=== PATIENT | male | born 1975 | race Caucasian/White ===

== ENCOUNTER → 2021-11-02 | Outpatient (CLI) | payer BC ==
[2021-11-01 09:35] LABS: HEMOGLOBIN 15.1 g/dL (14.0-18.0)
[2021-11-01 09:53] LABS: INR 0.89; PROTHROMBIN TIME 12.8 seconds (11.9-14.5)
[2021-11-01 09:54] LABS: PARTIAL THROMBOPLASTIN TIME 26.8 seconds (23.8-35.5)
[~2021-11-02] MED LIST: FENTANYL CITRATE/PF 100MCG/2 ML INJ ONE; LIDOCAINE HCL 1% LOCAL INJ 20 ML VIAL ONE; MIDAZOLAM HCL 2 MG/2 ML VIAL ONE
== END ==
LOC: CT 10:33
PROVIDERS: ATTEND Internal Medicine Critical Care Medicine
DX: R91.8 Other nonspecific abnormal finding of lung field (principal); R05.9 Cough, unspecified; J95.811 Postprocedural pneumothorax; J44.9 Chronic obstructive pulmonary disease, unspecified; Z20.822 Contact with and (suspected) exposure to COVID-19; F17.298 Nicotine dependence, other tobacco product, with other nicotine-induced disorders
CPT/HCPCS: 32408; 36415; 71045; 77012; 85014; 85049; 85610; 85730; J2001; J2250; J3010; U0002; 88112; 88305